=== PATIENT | male | born 1965 | race Caucasian/White ===

== ENCOUNTER 2023-02-12 11:48 | Day surgery (SDC) | payer OTHER, SELFPAY ==
--- NOTE | 2023-02-12 | PATH_ITS ---
[facility] Accession Number: [id number] No. of containers..01 Tissue . 01 Material submitted: . colon - COLON POLYP AT 30CM AND RECTAL POLYP . 01 Diagnosis: Colon, Polyp at 30 cm, Rectum Polyp, Biopsy: Fragments of tubulovillous adenoma and tubular adenoma. No evidence of malignancy or high-grade dysplasia. MRV 02/14/2023 1348 Local . 01 Electronically signed: . Eneida Huber MD, Pathologist NPI- [id number] . 01 Gross description: . Received in formalin and labeled colon polyp at 30 cm and rectal polyp, are multiple fragments of sage soft tissue, and one large polyp. The large polyp measures 1.2 x 0.7 x 0.3 cm. It is bisected and totally submitted in cassette A1. The remaining fragments measure 2.0 x 0.7 x 0.1 cm, in aggregate. All fragments are totally submitted in cassette A2. (CP:[id number]) /CHELI 02/13/2023 0955 Local . 01 Pathologist provided ICD-10: D12.6, D12.8 . 01 CPT . 072714 Specimen Comment: A courtesy copy of this report has been sent to [phone] Performed at: 01 [facility] [address] [place] [address] [address], [place], [place] [id number] MD Bacilio Amanda MD Phone: [phone]
[2023-02-12 12:28] VITALS: BMI 27.2
[2023-02-12 12:31] VITALS: BP 158/90; PULSE 90; RESP 20; TEMP 36.3; O2SAT 97
[2023-02-12] MEDS: LACTATED RINGERS 1,000 ML 42 ML IV (12:40)
--- NOTE | 2023-02-12 13:16 | P.HP_ITS ---
History of Present Illness History of Present Illness Date Patient Seen: 02/12/23 Chief complaint: SDC Narrative: History of large tubulovillous adenoma with high-grade dysplasia removed 1 year ago at 50 cm. Need for follow-up colonoscopy to ensure complete removal PFS Social History household members: spouse Smoking Status: Former smoker alcohol intake: current Meds Home Medications and Allergies Home Medications Medication Instructions Recorded Confirmed Type No Known Home Medications 02/12/23 02/12/23 History Allergies Allergy/AdvReac Type Severity Reaction Status Date / Time No Known Drug Allergies Allergy Verified 02/12/23 12:27 Exam Vital Signs (past 8 hours): - 02/12/23 12:31 Temperature 97.4 F L Pulse Rate 90 Respiratory Rate 20 Blood Pressure 158/90 H Pulse Oximetry 97 Oxygen Delivery Method Room Air Oxygen Delivery Method Room Air Narrative Exam Narrative: Oropharynx free of lesion Chest clear to auscultation percussion Cardiac exam reveals no S3 or murmur Assessment & Plan Assessment & Plan narrative: History of 5 cm tubulovillous adenoma with high-grade dysplasia need for follow- up colonoscopy. Risks, benefits, alternatives have been explained.
--- NOTE | 2023-02-12 13:18 | PM.OP.COLON ---
Operative Date/Time/Diagnoses Date of procedure: 02/12/23 Procedure & Clinicians Study performed: Colonoscopy Indications: Follow-up of very large tubulovillous adenoma at 50 cm Surgeon: Bonnie Rahman Procedure Notes Procedure in detail: After informed consent was obtained the patient was placed in left lateral decubitus position. The video colonoscope was introduced the rectum slowly advanced to cecum. On slow withdrawal mucosa was carefully examined. The scope was removed. The patient tolerated procedure well. Blood loss none Complications none Sedation mac Findings 1. No visible residual polyp at or near 50 cm. 2. 6 mm polyp at 30 cm snared and removed -cold 3. 1.4 cm polyp in the proximal rectum. This was hot snared and removed. There was some residual which was cleaned up with an additional pass. In addition there was a small 4 mm polyp just proximal to this. All of these were placed in the same bottle along with the 30 cm polyp. Will be in touch regarding his pathology. This will help determine interval follow-up.
[2023-02-12 14:13] VITALS: BP 114/80; PULSE 64; RESP 11; TEMP 36.3; O2SAT 97
[2023-02-12 14:17] VITALS: BP 118/80; PULSE 64; RESP 12; O2SAT 96
[2023-02-12 14:23] VITALS: BP 128/90; PULSE 74; RESP 13; O2SAT 97
[2023-02-12 14:26] VITALS: BP 131/88; PULSE 71; RESP 15; TEMP 36.9; O2SAT 95
== END 2023-02-12 14:47 | disposition home or self-care (01) ==
PROVIDERS: Referring Provider Internal Medicine Gastroenterology; Visit Provider Internal Medicine Gastroenterology
PROC: 0DJD8ZZ Inspection of Lower Intestinal Tract, Via Natural or Artificial Opening Endoscopic (ICD-10-PCS; CPT 45378; principal; 2023-02-12 13:30)
DX: Z12.11 Encounter for screening for malignant neoplasm of colon (principal); Z86.010 Personal history of colon polyps; D12.6 Benign neoplasm of colon, unspecified; D12.8 Benign neoplasm of rectum
CPT/HCPCS: 45385; J2704